=== PATIENT | female | born 1965 | race Caucasian/White ===

== ENCOUNTER 2016-08-03 18:50 | Emergency (ER) | payer BC, OTHER ==
[2016-08-03 18:55] VITALS: BP 129/90; RESP 16; TEMP 98.1
--- NOTE | 2016-08-03 19:50 | EDPHY ---
H & P Time Seen by Provider: 08/03/16 19:47 HPI/ROS: Chief complaint. Chronic pain HPI. 50-year-old female history of fibromyalgia presents with exacerbation of her fibromyalgia with neck and upper back pain for 1 week. No trauma. She has headache and nausea. No fever, cough. No abdominal pain. Also low energy. She has had similar symptoms previously. ROS Constitutional. no fever/chills, no weakness Eyes. no problems with vision ENT. no sore throat, no nasal drainage Cardiovascular. no chest pain Respiratory. no shortness of breath, no cough Abdominal. no abdominal pain, no nausea/vomiting, no diarrhea . no problems urinating MS. Upper back pain Skin. no rash Lymph. no swollen glands Neuro. no headache, no dizziness, no difficulty walking or with speech Past Medical/Surgical History: Past medical history significant for fibromyalgia, shoulder reconstruction, thyroidectomy, chronic migraines, cervical fusion Social History: , nonsmoker, no alcohol Smoking Status: Never smoked Physical Exam: General Appearance: Alert well-developed female mild distress vital signs are stable Eyes: Pupils equal and round no pallor or injection. ENT, Mouth: Mucous membranes are moist. Respiratory: There are no retractions, lungs are clear to auscultation. Cardiovascular: Regular rate and rhythm. Gastrointestinal: Abdomen is soft and nontender, no masses, bowel sounds normal. Neurological: Awake and alert, sensory and motor exams grossly normal. Skin: Warm and dry, no rashes. Musculoskeletal: Neck is supple and nontender however patient feels tightness in the paracervical and upper back muscles. Extremities symmetrical, full range of motion. Psychiatric: Patient is oriented X 3, there is no agitation. Constitutional: Initial Vital Signs Temperature (C) 36.7 C 08/03/16 18:52 Heart Rate 94 08/03/16 18:52 Respiratory Rate 16 08/03/16 18:52 Blood Pressure 129/90 H 08/03/16 18:52 O2 Sat (%) 96 08/03/16 18:52 O2 Delivery Mode Room Air Allergies/Adverse Reactions: morphine Allergy (Verified 12/18/15 18:31) Penicillins Allergy (Verified 12/18/15 18:31) Sulfa (Sulfonamide Antibiotics) Allergy (Verified 12/18/15 18:31) Home Medications: Medication Instructions Recorded DULoxetine [Cymbalta 60 MG (*)] 60 mg PO DAILY 07/23/15 Escitalopram Oxalate [Lexapro] 20 mg PO HS 07/23/15 HYDROmorphone HCL [Dilaudid 2 mg 2 mg PO TID PRN 07/23/15 (*)] Levothyroxine [Synthroid 50 mcg 50 mcg PO DAILY06 07/23/15 (*)] clonazePAM [klonoPIN (*)] 1 mg PO BID 07/23/15 Ferrous Sulfate [Slow Fe 140 MG 140 mg PO DAILY 12/18/15 (*)] Magnesium Oxide [Magnesium Oxide 250 - 500 mg PO DAILY 12/18/15 500 mg] Metaxalone 800 mg PO TID PRN 12/18/15 PROPRANOLOL HCL 60 mg PO HS 12/18/15 Ibuprofen [Motrin (*)] 400 mg PO Q4HRS PRN #0 tab 12/20/15 Medical Decision Making Procedures: IV normal saline. Versed IV. ED Course/Re-evaluation: Recheck at 8:50 p.m.. Patient is feeling somewhat better after the 2 mg of Versed. We will repeat 2 more mg of Versed Re-evaluation again at 9:20 p.m. patient, her , and I discussed laboratory evaluation. We discussed treatment plan importance of follow-up and further evaluation. She feels well enough now to be discharged. She has an appointment tomorrow morning for trigger point injections. She is encouraged to return at any point should she be worse. It sounds like she has quite a stressful week with the culmination of her stressful week on . Differential Diagnosis: Apparent fibromyalgia exacerbation. No evidence for infection or trauma or electrolyte abnormalities - Data Points Laboratory Results: Laboratory Results 08/03/16 20:38 08/03/16 20:38 08/03/16 08/03/16 20:38 20:38 WBC 4.50 10^3/uL 10^3/uL (3.80-9.50) RBC 4.44 10^6/uL 10^6/uL (4.18-5.33) Hgb 14.1 g/dL g/dL (12.6-16.3) Hct 41.6 % % (38.0-47.0) MCV 93.7 fL fL (81.5-99.8) MCH 31.8 pg pg (27.9-34.1) MCHC 33.9 g/dL g/dL (32.4-36.7) RDW 11.9 % % (11.5-15.2) Plt Count 290 10^3/uL 10^3/uL (150-400) MPV 8.8 fL fL (8.7-11.7) Neut % (Auto) 48.5 % % (39.3-74.2) Lymph % (Auto) 40.4 % % (15.0-45.0) [place] % (Auto) 8.7 % % (4.5-13.0) Eos % (Auto) 1.1 % % (0.6-7.6) Baso % (Auto) 1.1 % % (0.3-1.7) Nucleat RBC Rel Count 0.0 % % (0.0-0.2) Absolute Neuts (auto) 2.18 10^3/uL 10^3/uL (1.70-6.50) Absolute Lymphs (auto) 1.82 10^3/uL 10^3/uL (1.00-3.00) Absolute Monos (auto) 0.39 10^3/uL 10^3/uL (0.30-0.80) Absolute Eos (auto) 0.05 10^3/uL 10^3/uL (0.03-0.40) Absolute Basos (auto) 0.05 10^3/uL 10^3/uL (0.02-0.10) Absolute Nucleated RBC 0.00 10^3/uL 10^3/uL (0-0.01) Immature Gran % 0.2 % % (0.0-1.1) Immature Gran # 0.01 10^3/uL 10^3/uL (0.00-0.10) Sodium 139 mEq/L mEq/L (134-144) Potassium 3.9 mEq/L mEq/L (3.5-5.2) Chloride 104 mEq/L mEq/L (97-110) Carbon Dioxide 26 mEq/l mEq/l (22-31) Anion Gap 9 mEq/L mEq/L (8-16) BUN 14 mg/dL mg/dL (7-23) Creatinine 0.9 mg/dL mg/dL (0.6-1.0) Estimated GFR > 60 Glucose 83 mg/dL mg/dL (70-100) Calcium 9.3 mg/dL mg/dL (8.5-10.4) Medications Given: Discontinued Medications Sodium Chloride (Ns) 1,000 mls @ 0 mls/hr IV ONCE ONE PRN Reason: Wide Open Stop: 08/03/16 20:17 Last Admin: 08/03/16 20:42 Dose: 1,000 mls Midazolam HCl (Versed) 2 mg IVP EDNOW ONE Stop: 08/03/16 20:18 Last Admin: 08/03/16 20:42 Dose: 2 mg Midazolam HCl (Versed) 2 mg IVP ONCE ONE Stop: 08/03/16 20:57 Last Admin: 08/03/16 21:06 Dose: 2 mg Departure - Departure Disposition: Home, Routine, Self-Care Clinical Impression: Acute back pain Qualifiers: Back pain location: thoracic back pain Back pain laterality: bilateral Qualified Code(s): M54.6 - Pain in thoracic spine Condition: Good Instructions: Back Pain (ED) Additional Instructions: Continue regular medications. Return for worsening symptoms. Keep your appointment tomorrow morning for trigger point injections. Referrals: Ju Pena [Primary Care Provider] - As per Instructions
[2016-08-03] MEDS ORDERED: NS 1,000 ML IV ONE (20:16)
[2016-08-03] MEDS ORDERED: MIDAZOLAM 10 MG/2 ML VIAL IVP ONE (20:17)
[2016-08-03] MEDS ORDERED: MIDAZOLAM 2 MG/2 ML VIAL ONE (20:29)
[2016-08-03 20:46] LABS: % IMMATURE GRANULYOCYTES 0.2 % (0.0-1.1); ABSOLUTE IMMATURE GRANULOCYTES 0.01 10^3/uL (0.00-0.10); ADD DIFF? NO; ADD MORPH? NO; ADD SCAN? NO; ATYPICAL LYMPHOCYTE FLAG 0 (0-99); FRAGMENT RBC FLAG 0 (0-99); HEMATOCRIT 41.6 % (38.0-47.0); HEMOGLOBIN 14.1 g/dL (12.6-16.3); LEFT SHIFT FLG 0 (0-99); LIPEMIA HEMOLYSIS FLAG 90 (0-99); MEAN CELL HEMOGLOBIN 31.8 pg (27.9-34.1); MEAN CELL HEMOGLOBIN CONCENTR. 33.9 g/dL (32.4-36.7); MEAN CELL VOLUME 93.7 fL (81.5-99.8); MEAN PLATELET VOLUME 8.8 fL (8.7-11.7); PLATELET CLUMPS FLAG 0 (0-99); PLATELET COUNT 290 10^3/uL (150-400); RED BLOOD CELL COUNT 4.44 10^6/uL (4.18-5.33); RED CELL DISTRIBUTION WIDTH 11.9 % (11.5-15.2)
[2016-08-03] MEDS ORDERED: MIDAZOLAM 2 MG/2 ML VIAL IVP ONE (20:56)
[2016-08-03 21:00] LABS: ANION GAP 9 mEq/L (8-16); CALCIUM 9.3 mg/dL (8.5-10.4); CARBON DIOXIDE 26 mEq/l (22-31); CHLORIDE 104 mEq/L (97-110); CREATININE 0.9 mg/dL (0.6-1.0); GLOMERULAR FILTRATION RATE > 60; GLUCOSE 83 mg/dL (70-100); POTASSIUM 3.9 mEq/L (3.5-5.2); SODIUM 139 mEq/L (134-144)
[2016-08-03 21:36] VITALS: O2SAT 95
[2016-08-03 21:37] VITALS: PULSE 66
== END 2016-08-03 21:45 | disposition home or self-care (01) ==
DX: M54.6 Pain in thoracic spine (principal); G89.29 Other chronic pain
CPT/HCPCS: 96374; J2250

== ENCOUNTER 2016-08-14 12:24 | Observation (INO) | payer BC ==
--- NOTE | 2016-08-14 13:04 | CPEKG ---
Heart Rate: 67 RR Interval: 896 P-R Interval: 128 QRSD Interval: 78 QT Interval: 412 QTC Interval: 435 P [place]: -27 QRS [place]: 38 T Wave [place]: 49 EKG Severity - NORMAL ECG - EKG Impression: SINUS RHYTHM Electronically Signed By: Wang Girard 14-Aug-2016 15:14:51
[2016-08-14] MEDS ORDERED: NS 250 ML IV ONE (13:13)
[2016-08-14 13:22] LABS: % IMMATURE GRANULYOCYTES 0.2 % (0.0-1.1); ABSOLUTE IMMATURE GRANULOCYTES 0.01 10^3/uL (0.00-0.10); ADD DIFF? NO; ADD MORPH? NO; ADD SCAN? NO; ATYPICAL LYMPHOCYTE FLAG 10 (0-99); FRAGMENT RBC FLAG 0 (0-99); HEMATOCRIT 47.1 % (38.0-47.0); HEMOGLOBIN 16.2 g/dL (12.6-16.3); LEFT SHIFT FLG 0 (0-99); LIPEMIA HEMOLYSIS FLAG 90 (0-99); MEAN CELL HEMOGLOBIN 31.8 pg (27.9-34.1); MEAN CELL HEMOGLOBIN CONCENTR. 34.4 g/dL (32.4-36.7); MEAN CELL VOLUME 92.5 fL (81.5-99.8); MEAN PLATELET VOLUME 8.9 fL (8.7-11.7); PLATELET CLUMPS FLAG 0 (0-99); PLATELET COUNT 299 10^3/uL (150-400); RED BLOOD CELL COUNT 5.09 10^6/uL (4.18-5.33); RED CELL DISTRIBUTION WIDTH 11.6 % (11.5-15.2)
[2016-08-14 13:35] LABS: ANION GAP 13 mEq/L (8-16); CARBON DIOXIDE 23 mEq/l (22-31); CHLORIDE 102 mEq/L (97-110); GLOMERULAR FILTRATION RATE 59; GLUCOSE 91 mg/dL (70-100); POTASSIUM 4.2 mEq/L (3.5-5.2); SODIUM 138 mEq/L (134-144)
[2016-08-14] MEDS ORDERED: fentaNYL 100 MCG/2 ML INJ ONE (13:44)
[2016-08-14 13:45] LABS: TROPONIN I < 0.012 ng/mL (0-0.034)
[2016-08-14] MEDS ORDERED: fentaNYL 100 MCG/2 ML INJ IVP ONE (13:46)
[2016-08-14] MEDS ORDERED: ASPIRIN 81 MG CHEWABLE TAB PO ONE (14:11)
--- NOTE | 2016-08-14 14:13 | EDPHY ---
H & P Time Seen by Provider: 08/14/16 13:19 HPI/ROS: HPI Chest pain. 50-year-old female by private vehicle. She complains of chest pain, onset at 10 :00 a.m.. Reports pain is been constant. Describes pain as squeezing aching pressure sensation mid substernal area. No radiation. No diaphoresis. She reports she has had this type pain in the past. She was seen at a local emergency department several months ago for this condition. No provocative testing was done at this time. She has not had a cardiac catheterization. ROS: Constitutional: No fever, no chills. No weakness. Eyes: No discharge. No changes in vision. ENT: No sore throat. No nasal congestion or rhinorrhea. Respiratory: No cough. No shortness of breath. Cardiac: No chest pain, no palpitations. Gastrointestinal: No abdominal pain, no vomiting, no diarrhea. Genitourinary: No hematuria. No dysuria or increased frequency with urination. Musculoskeletal: No back pain. No neck pain. No myalgias or arthralgias. Skin: No rashes. Neurological: No headache. No focal weakness or altered sensation. Past medical history: Anxiety, fibromyalgia. Social history: Here by herself. Nonsmoker. Physical Exam: General Appearance: Alert, anxious. This patient is responding to questions appropriately and in full sentences. This patient appears well-hydrated and well-nourished. Eyes: Pupils equal and round no pallor or injection. No lid edema, erythema or injection. Respiratory: There are no retractions, lungs are clear to auscultation with good air movement bilaterally. Cardiovascular: Regular rate and rhythm. No murmur. Gastrointestinal: Abdomen is soft and nontender, no masses, bowel sounds normal. No focal tenderness at McBurney's point. No Mckeon sign. Neurological: Motor sensory function is grossly intact. Cranial nerves are normal. Gait is normal. Skin: Warm and dry, no rashes. Musculoskeletal: Neck is supple and nontender. Extremities are symmetrical. All joints range without pain or impingement. Psychiatric: No agitation. No depression. Database: EKG: EKG time 1:01 p.m.; EKG shows a narrow complex normal sinus rhythm with a ventricular rate of 67. The OK, QRS, QT intervals are within normal limits. There are no ST-T wave changes indicative of ischemic or injury pattern. No evidence of right heart strain. Interpreted by me. Imaging: Chest x-ray AP portable; the cardiac mediastinal silhouette is unremarkable. No evidence of infiltrate or pneumothorax. No acute cardiopulmonary disease process noted. Interpreted by me. Procedures: Emergency department course: IV placed. She was placed on a quality assurance monitor chassis. She was given 324 mg of chewed aspirin. She received 25 mcg of IV fentanyl. She had relief of her chest pain with this medication. EKG and chest x-ray obtained. 2:10 p.m., patient re-evaluated, resting comfortably at this time. Results of diagnostic workup discussed with her. Plan for telemetry observation admission discussed. All of her questions were answered. 2:15 p.m., discussed with on-call hospitalist. Patient accepted for admission to telemetry observation to the hospitalist service. Patient admitted in stable improved condition. Differential Diagnosis: The differential diagnosis on this patient includes but is not limited to anxiety reaction, acute coronary syndrome, esophageal spasm. This represents a partial list of diagnoses considered. These considerations are based on history , physical exam, past history, reassessment and diagnostic testing. Smoking Status: Never smoked Constitutional: Initial Vital Signs Temperature (C) 36.4 C 08/14/16 12:32 Heart Rate 77 08/14/16 12:32 Respiratory Rate 16 08/14/16 12:32 Blood Pressure 104/73 08/14/16 12:32 O2 Sat (%) 98 08/14/16 12:32 O2 Delivery Mode Room Air Allergies/Adverse Reactions: morphine Allergy (Verified 12/18/15 18:31) Penicillins Allergy (Verified 12/18/15 18:31) Sulfa (Sulfonamide Antibiotics) Allergy (Verified 12/18/15 18:31) Home Medications: Medication Instructions Recorded DULoxetine [Cymbalta 60 MG (*)] 60 mg PO DAILY 07/23/15 Escitalopram Oxalate [Lexapro] 20 mg PO HS 07/23/15 HYDROmorphone HCL [Dilaudid 2 mg 2 mg PO TID PRN 07/23/15 (*)] Levothyroxine [Synthroid 50 mcg 50 mcg PO DAILY06 07/23/15 (*)] clonazePAM [klonoPIN (*)] 1 mg PO BID 07/23/15 Ferrous Sulfate [Slow Fe 140 MG 140 mg PO DAILY 12/18/15 (*)] Magnesium Oxide [Magnesium Oxide 250 - 500 mg PO DAILY 12/18/15 500 mg] Metaxalone 800 mg PO TID PRN 12/18/15 PROPRANOLOL HCL 60 mg PO HS 12/18/15 Ibuprofen [Motrin (*)] 400 mg PO Q4HRS PRN #0 tab 12/20/15 Medical Decision Making - Diagnostics Imaging Results: Imaging Impressions Chest X-Ray 08/14/16 13:15 Impression: Normal chest x-ray. - Data Points Laboratory Results: Laboratory Results 08/14/16 13:06 08/14/16 13:06 08/14/16 08/14/16 08/14/16 13:06 13:06 13:06 WBC 4.44 10^3/uL 10^3/uL (3.80-9.50) RBC 5.09 10^6/uL 10^6/uL (4.18-5.33) Hgb 16.2 g/dL g/dL (12.6-16.3) Hct 47.1 % H % (38.0-47.0) MCV 92.5 fL fL (81.5-99.8) MCH 31.8 pg pg (27.9-34.1) MCHC 34.4 g/dL g/dL (32.4-36.7) RDW 11.6 % % (11.5-15.2) Plt Count 299 10^3/uL 10^3/uL (150-400) MPV 8.9 fL fL (8.7-11.7) Neut % (Auto) 59.7 % % (39.3-74.2) Lymph % (Auto) 30.2 % % (15.0-45.0) [place] % (Auto) 8.3 % % (4.5-13.0) Eos % (Auto) 0.5 % L % (0.6-7.6) Baso % (Auto) 1.1 % % (0.3-1.7) Nucleat RBC Rel Count 0.0 % % (0.0-0.2) Absolute Neuts (auto) 2.65 10^3/uL 10^3/uL (1.70-6.50) Absolute Lymphs (auto) 1.34 10^3/uL 10^3/uL (1.00-3.00) Absolute Monos (auto) 0.37 10^3/uL 10^3/uL (0.30-0.80) Absolute Eos (auto) 0.02 10^3/uL L 10^3/uL (0.03-0.40) Absolute Basos (auto) 0.05 10^3/uL 10^3/uL (0.02-0.10) Absolute Nucleated RBC 0.00 10^3/uL 10^3/uL (0-0.01) Immature Gran % 0.2 % % (0.0-1.1) Immature Gran # 0.01 10^3/uL 10^3/uL (0.00-0.10) PT Pending INR Pending APTT Pending Sodium 138 mEq/L mEq/L (134-144) Potassium 4.2 mEq/L mEq/L (3.5-5.2) Chloride 102 mEq/L mEq/L (97-110) Carbon Dioxide 23 mEq/l mEq/l (22-31) Anion Gap 13 mEq/L mEq/L (8-16) BUN 15 mg/dL mg/dL (7-23) Creatinine 1.0 mg/dL mg/dL (0.6-1.0) Estimated GFR 59 Glucose 91 mg/dL mg/dL (70-100) Calcium 9.0 mg/dL mg/dL (8.5-10.4) Creatine Kinase 69 IU/L IU/L (0-156) CK-MB (CK-2) Fraction 0.80 ng/mL ng/mL (0-3.19) Troponin I < 0.012 ng/mL ng/mL (0-0.034) Medications Given: Discontinued Medications Fentanyl (Sublimaze) 25 mcg IVP EDNOW ONE Stop: 08/14/16 13:47 Last Admin: 08/14/16 13:54 Dose: 25 mcg Sodium Chloride (Ns) 250 mls @ 0 mls/hr IV ONCE ONE PRN Reason: Wide Open Stop: 08/14/16 13:14 Last Admin: 08/14/16 13:21 Dose: 250 mls Departure - Departure Disposition: [facility] Inpatient Acute Clinical Impression: Chest pain Referrals: Ju Pena [Primary Care Provider] - As per Instructions
[2016-08-14 14:19] LABS: APTT 27.5 SEC (23.0-38.0)
[2016-08-14 14:20] LABS: PROTIME(PATIENT) 13.1 SEC (12.0-15.0)
[2016-08-14] MEDS ORDERED: ACETAMINOPHEN 325 MG TAB PO PRN (16:46)
[2016-08-14] MEDS ORDERED: ONDANSETRON DISINTEGRATING 4 MG TAB PO PRN (16:46)
[2016-08-14] MEDS ORDERED: ZOLPIDEM TARTRATE 6.25 MG PO PRN (16:51)
[2016-08-14] MEDS ORDERED: TAPENTADOL HCL 50 MG TAB PO PRN (16:51)
--- NOTE | 2016-08-14 17:01 | PDGENHP ---
History and Physical - Chief Complaint chest pain - History of Present Illness 50 yo female with hx of intermittent CP found to be non cardiac at [facility] several times per her report admitted from the E.D for chest pain r/o. She has a hx of Fibromyalgia and this has been thought to be contributing previously. She has also been previously treated for costochondritis with some improvement. She reports that she had CP this morning, left sided with palpitations at 10 a.m. She continues to have cp but this has now moved to the right side of her chest. It is worse with inspiration. It feels similar to previous chest pain. It is present at rest, not exertional. Not positional. Does not involve neck, jaw, arms. Trop negative. EKG is negative. CXR is negative. No SOB, no cough. Past medical history: Anxiety, fibromyalgia. Social history: Nonsmoker. No ETOH, no drug use. Lives alone FmHx: No hx of early cardiac disease Imaging: CXR: the cardiac mediastinal silhouette is unremarkable. No evidence of infiltrate or pneumothorax. No acute cardiopulmonary disease process noted. personally reviewed. EKG: no acute ischemic changed (personally reviewed) History Information - Allergies/Home Medication List Allergies/Adverse Reactions: morphine Allergy (Verified 12/18/15 18:31) Penicillins Allergy (Verified 12/18/15 18:31) Sulfa (Sulfonamide Antibiotics) Allergy (Verified 12/18/15 18:31) Home Medications: DULoxetine [Cymbalta 60 MG (*)] 60 mg PO DAILY 08/14/16 [Last Taken 08/14/16] Escitalopram Oxalate [Lexapro] 20 mg PO DAILY 08/14/16 [Last Taken 08/14/16] Ethinyl Estradiol/Drospirenone [Vestura 3 mg-0.02 mg Tablet] 1 each PO HS [Last Taken 08/13/16] Herbals/Supplements -Info Only 1 ea PO DAILY 08/14/16 [Last Taken Unknown] Levothyroxine [Synthroid 50 mcg (*)] 50 mcg PO DAILY 08/14/16 [Last Taken ] Tapentadol HCl [Nucynta 50 MG (*)] 50 mg PO Q6H PRN 08/14/16 [Last Taken Unknown ] Zolpidem Tartrate [Ambien Cr] 6.25 mg PO HS PRN 08/14/16 [Last Taken 08/13/16] buPROPion SR [Wellbutrin 100mg SR (*)] 100 - 200 mg PO DAILY 08/14/16 [Last Taken 08/14/16 1 tab] clonazePAM [klonoPIN (*)] 1 mg PO BID 08/14/16 [Last Taken 08/14/16 09:00 1 tab] I have personally reviewed and updated: family history, medical history, social history - Social History Smoking Status: Never smoked Review of Systems ROS: 10pt was reviewed & negative except for what was stated in HPI & below Physical Exam Temp Pulse Resp BP Pulse Ox 36.2 C 68 14 120/74 98 08/14/16 16:42 08/14/16 16:42 08/14/16 16:42 08/14/16 16:42 08/14/16 16:42 Constitutional: no apparent distress, appears nourished, not in pain Eyes: PERRL, anicteric sclera, EOMI Ears, Nose, Mouth, Throat: moist mucous membranes, hearing normal, ears appear normal Cardiovascular: regular rate and rhythym, no murmur, rub, or gallop, No systolic murmur, No JVD Respiratory: no respiratory distress, no rales or rhonchi, clear to auscultation Gastrointestinal: normoactive bowel sounds, soft, non-tender abdomen Skin: warm, normal color Neurologic: AAOx3 Psychiatric: interacting appropriately, anxious Lymph, Heme, Immunologic: no cervical LAD Lab Data & Imaging Review 08/14/16 13:06 08/14/16 13:06 WBC 4.44 10^3/uL (3.80-9.50) 08/14/16 13:06 RBC 5.09 10^6/uL (4.18-5.33) 08/14/16 13:06 Hgb 16.2 g/dL (12.6-16.3) 08/14/16 13:06 Hct 47.1 % (38.0-47.0) H 08/14/16 13:06 MCV 92.5 fL (81.5-99.8) 08/14/16 13:06 MCH 31.8 pg (27.9-34.1) 08/14/16 13:06 MCHC 34.4 g/dL (32.4-36.7) 08/14/16 13:06 RDW 11.6 % (11.5-15.2) 08/14/16 13:06 Plt Count 299 10^3/uL (150-400) 08/14/16 13:06 MPV 8.9 fL (8.7-11.7) 08/14/16 13:06 Neut % (Auto) 59.7 % (39.3-74.2) 08/14/16 13:06 Lymph % (Auto) 30.2 % (15.0-45.0) 08/14/16 13:06 [place] % (Auto) 8.3 % (4.5-13.0) 08/14/16 13:06 Eos % (Auto) 0.5 % (0.6-7.6) L 08/14/16 13:06 Baso % (Auto) 1.1 % (0.3-1.7) 08/14/16 13:06 Nucleat RBC Rel Count 0.0 % (0.0-0.2) 08/14/16 13:06 Absolute Neuts (auto) 2.65 10^3/uL (1.70-6.50) 08/14/16 13:06 Absolute Lymphs (auto) 1.34 10^3/uL (1.00-3.00) 08/14/16 13:06 Absolute Monos (auto) 0.37 10^3/uL (0.30-0.80) 08/14/16 13:06 Absolute Eos (auto) 0.02 10^3/uL (0.03-0.40) L 08/14/16 13:06 Absolute Basos (auto) 0.05 10^3/uL (0.02-0.10) 08/14/16 13:06 Absolute Nucleated RBC 0.00 10^3/uL (0-0.01) 08/14/16 13:06 Immature Gran % 0.2 % (0.0-1.1) 08/14/16 13:06 Immature Gran # 0.01 10^3/uL (0.00-0.10) 08/14/16 13:06 PT 13.1 SEC (12.0-15.0) 08/14/16 13:06 INR 1.00 (0.83-1.16) 08/14/16 13:06 APTT 27.5 SEC (23.0-38.0) 08/14/16 13:06 Sodium 138 mEq/L (134-144) 08/14/16 13:06 Potassium 4.2 mEq/L (3.5-5.2) 08/14/16 13:06 Chloride 102 mEq/L (97-110) 08/14/16 13:06 Carbon Dioxide 23 mEq/l (22-31) 08/14/16 13:06 Anion Gap 13 mEq/L (8-16) 08/14/16 13:06 BUN 15 mg/dL (7-23) 08/14/16 13:06 Creatinine 1.0 mg/dL (0.6-1.0) 08/14/16 13:06 Estimated GFR 59 08/14/16 13:06 Glucose 91 mg/dL (70-100) 08/14/16 13:06 Calcium 9.0 mg/dL (8.5-10.4) 08/14/16 13:06 Creatine Kinase 69 IU/L (0-156) 08/14/16 13:06 CK-MB (CK-2) Fraction 0.80 ng/mL (0-3.19) 08/14/16 13:06 Troponin I < 0.012 ng/mL (0-0.034) 08/14/16 13:06 Assessment & Plan Assessment: #Chest pain (Acute), likely atypical. Her story seem more appropriate for costochondritis or other etiology. I will start her on NSAIDS and determine clinical response. Aspirin was given earlier. Serial Trops EKG with CP Telemetry #Fibromyalgia #Anxiety Plan: Per above restart home meds will hold off on stress test in a.m. for now
[2016-08-14] MEDS ORDERED: ZOLPIDEM TARTRATE 5 MG TAB PO PRN (17:02)
[2016-08-14] MEDS: NS W/ 20 KCl/L 1,000 ML IV SCH ×2 (18:10→21:12)
[2016-08-14] MEDS ORDERED: DROSPIRENONE PO SCH (21:00)
[2016-08-14] MEDS ORDERED: ETHINYL ESTRADIOL PO SCH (21:00)
[2016-08-14] MEDS: clonazePAM 1 MG TAB PO SCH (21:10)
[2016-08-14] MEDS: IBUPROFEN 800 MG TAB PO SCH (21:10)
[2016-08-14] MEDS ORDERED: ESCITALOPRAM OXALATE 10 MG TAB PO SCH (22:45)
[2016-08-15 05:36] LABS: % IMMATURE GRANULYOCYTES 0.2 % (0.0-1.1); ABSOLUTE IMMATURE GRANULOCYTES 0.01 10^3/uL (0.00-0.10); ADD DIFF? NO; ADD MORPH? NO; ADD SCAN? NO; ATYPICAL LYMPHOCYTE FLAG 0 (0-99); FRAGMENT RBC FLAG 0 (0-99); HEMATOCRIT 39.7 % (38.0-47.0); HEMOGLOBIN 13.4 g/dL (12.6-16.3); LEFT SHIFT FLG 0 (0-99); LIPEMIA HEMOLYSIS FLAG 90 (0-99); MEAN CELL HEMOGLOBIN 31.9 pg (27.9-34.1); MEAN CELL HEMOGLOBIN CONCENTR. 33.8 g/dL (32.4-36.7); MEAN CELL VOLUME 94.5 fL (81.5-99.8); MEAN PLATELET VOLUME 9.1 fL (8.7-11.7); PLATELET CLUMPS FLAG 0 (0-99); PLATELET COUNT 248 10^3/uL (150-400); RED CELL DISTRIBUTION WIDTH 11.9 % (11.5-15.2)
[2016-08-15 05:45] LABS: ANION GAP 6 mEq/L (8-16); CARBON DIOXIDE 24 mEq/l (22-31); CHLORIDE 107 mEq/L (97-110); CREATININE 0.9 mg/dL (0.6-1.0); GLOMERULAR FILTRATION RATE > 60; GLUCOSE 76 mg/dL (70-100); POTASSIUM 4.6 mEq/L (3.5-5.2); SODIUM 137 mEq/L (134-144)
[2016-08-15 05:56] LABS: TROPONIN I < 0.012 ng/mL (0-0.034)
[2016-08-15] MEDS: IBUPROFEN 800 MG TAB PO SCH (06:21)
[2016-08-15] MEDS ORDERED: buPROPion SR 100 MG TAB PO SCH (09:00)
[2016-08-15] MEDS ORDERED: LEVOTHYROXINE 50 MCG TAB PO SCH (09:00)
[2016-08-15] MEDS ORDERED: DULoxetine 60 MG CAP PO SCH (09:00)
[2016-08-15] MEDS ORDERED: NON-FORMULARY NEW DRUG (Escitalopram Oxalate [Lexapro] 20 MG) PO SCH (09:00)
--- NOTE | 2016-08-15 09:57 | CPEKG ---
Heart Rate: 69 RR Interval: 870 P-R Interval: 136 QRSD Interval: 82 QT Interval: 428 QTC Interval: 459 P [place]: 65 QRS [place]: 60 T Wave [place]: 59 EKG Severity - NORMAL ECG - EKG Impression: SINUS RHYTHM Electronically Signed By: Liliana Christianson 15-Aug-2016 13:50:20
[2016-08-15 11:36] VITALS: BP 107/66; PULSE 75; RESP 25; TEMP 98.1; O2SAT 98
--- NOTE | 2016-08-15 12:21 | ECHO ---
[id number] + + [id number] : : [place] [address] : : [phone] + + Adult Echocardiographic Report + ---------+ :Name: NHOEMI JOHNSON MStudy Date: 08/15/2016 10:46 AM BP: 103/62 m mHg : : Hospital Admission Number: [id number] Meghana osorio: 143: :: 1965 Gender: Female Height: 64 i n : :Age: 50 yrs Race: WH Weight: 115 lb : :Reason For Study: chest pain : : BSA: 1.5 met ers2 : :History: chest pain : + ---------+ MMode/2D Measurements \T\ Calculations IVSd: 0.82 cm RVDd: 1.9 cm FS: 29.1 % Ao root diam: LVPWd: 0.81 cm LVIDd: 3.7 cm EDV(Teich): 2.8 cm LVIDs: 2.7 cm 59.6 ml ESV(Teich): 25.8 ml EF(Teich): 56.7 % LVLd ap4: 6.8 cm SV(MOD-sp4): EDV(MOD-sp4): 42.0 ml 69.0 ml LVLs ap4: 5.7 cm ESV(MOD-sp4): 27.0 ml EF(MOD-sp4): 60.9 % Normal Measurement Values: + + :LVIDd (3.5-5.7cm) IVSd (0.6-1.1cm) LVPWd (0.6-1.1cm) Aortic Root (2.0-3.7cm)Left Atrium (1.5-4.0cm): :LV Vol(d) (76-115ml) LV Vol(s) (29-48ml) Ejec Fraction (50-65%)PV Valdemar (0.6- 1.2m/s) TV Valdemar (0.4-1.0m/s) : :MV E Valdemar (0.8-1.0m/s)MV A Valdemar (0.3-1.0m/s)LVOT Valdeamr (0.7-1.2m/s) Asc Ao Valdemar ( 0.9-1.8m/s) : + + Doppler Measurements \T\ Calculations MV E max valdemar: Ao V2 max: LV V1 max: PA V2 max: 77.5 cm/sec 108.0 cm/sec 94.8 cm/sec 103.0 cm/sec MV A max valdemar: Ao max PG: LV V1 max PG: PA max P.2 cm/sec 4.7 mmHg 3.6 mmHg 4.2 mmHg MV E/A: 1.2 MV dec time: 0.20 sec TR max valdemar: 215.0 cm/sec TR max P.5 mmHg Left Ventricle The left ventricle is normal in size and function. There is normal left ventricular wall thickness. Ejection Fraction = 60%. No regional wall motion abnormalities noted. Right Ventricle The right ventricle is normal in size and function. Atria The left atrial size is normal. Right atrial size is normal. Mitral Valve The mitral valve is normal in structure and function. There is no mitral valve stenosis. There is trace to mild mitral regurgitation. Tricuspid Valve The tricuspid valve is normal in structure and function. There is no tricuspid stenosis. There is trace to mild tricuspid regurgitation. Right ventricular systolic pressure is 23mmHg. Aortic Valve The aortic valve is trileaflet. There is no aortic stenosis. There is no aortic insufficiency. Pulmonic Valve The pulmonic valve is not well visualized. Great Vessels The aortic root is normal size. Pericardium/Pleural trivial pericardial effusion. Conclusion A two-dimensional transthoracic echocardiogram with M-mode and Doppler was performed. The left ventricle is normal in size and function. Ejection Fraction = 60%. Normal wall motion. Normal appearing valves. There is trace to mild mitral regurgitation. There is trace to mild tricuspid regurgitation. Right ventricular systolic pressure is 23mmHg. Trivial pericardial effusion. Final Reading Physician: Sierra Harris signed on 08/15/2016 12:20 PM Ordering Physician: Samir Restrepo Performed By: Denise Andrade
[2016-08-15] MEDS: clonazePAM 1 MG TAB PO SCH (13:39)
[2016-08-15] MEDS ORDERED: ESCITALOPRAM OXALATE 10 MG TAB PO SCH (21:00)
--- NOTE | 2016-08-16 06:02 | GDS ---
[f rep st] DISCHARGE SUMMARY DISCHARGE DIAGNOSES: 1. Atypical chest pain, likely musculoskeletal in nature. 2. Fibromyalgia. 3. Anxiety. IMAGING STUDIES/PROCEDURES: Echocardiogram August 15, 2016 shows normal left ventricular size and func tion with an EF of 60%. Normal wall motion and normal valves with trivial pericardial effusion. HISTORY: For details please see the history and physical dated August 14, 2016, by Dr. Samir Restrepo. In brief, the patient is a 50-year-old female with history of fibromyalgia and anxiety who presente d to the emergency department chest pain. She had recently been evaluated for chest pain at [facility] several times prior to arrival here. She has previously been ruled out for cardiac source. She is admitted to the hospital for further evaluation. HOSPITAL COURSE: The patient is in the observation unit. She had a nonischemic EKG. Negative trop onins x3. Negative D-dimer. No abnormal events on telemetry. She does have reproducible chest marty n on palpation of her chest wall and I agree with the previous evaluation that this is likely muscul oskeletal in nature. This is consistent with costochondritis. DISPOSITION: Patient is discharged home in stable condition. DISCHARGE MEDICATIONS: Please see [facility] for complete updated outpatient medication list. There are no new medications on discharge. We will continue her ibuprofen for costochondritis pain. FOLLOWUP: She is to follow up with her primary care physician Ju Pena for ongoing manageme nt of her fibromyalgia and chest wall pain. /[id number]/MODL
== END 2016-08-15 14:30 | disposition home or self-care (01) ==
LOC: F1N 16:28
PROVIDERS: ADMIT Family Medicine; ATTEND Hospitalist
DX: R07.89 Other chest pain (principal); M79.7 Fibromyalgia; F41.9 Anxiety disorder, unspecified
CPT/HCPCS: 71010; 93005; 93306; 96374; 99285; G0378; J3010

== ENCOUNTER 2016-10-30 18:34 | Emergency (ER) | payer BC ==
[2016-10-30 18:42] VITALS: RESP 16
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
[2016-10-30] MEDS ORDERED: LIDOCAINE 5% 1 EA PATCH TD ONE (20:43)
[2016-10-30] MEDS ORDERED: PATCH REMOVAL 1 EA PATCH TD SCH (21:00)
[2016-10-30 21:24] VITALS: BP 115/76; PULSE 74; TEMP 97.9; O2SAT 94
== END 2016-10-30 21:24 | disposition home or self-care (01) ==
DX: M54.9 Dorsalgia, unspecified (principal); M79.7 Fibromyalgia; G89.29 Other chronic pain

== ENCOUNTER 2016-11-04 18:20 | Emergency (ER) | payer BC ==
[2016-11-04 18:28] VITALS: TEMP 97.3
[2016-11-04] MEDS: LIDOCAINE 5% 1 EA PATCH TD SCH ×3 (19:20→19:48)
[2016-11-04] MEDS ORDERED: KETOROLAC 30 MG/1 ML SDV IVP ONE (19:23)
[2016-11-04] MEDS ORDERED: methylPREDNISolone SOD SUCC 125 MG/2 ML VIAL IVP ONE (19:23)
[2016-11-04] MEDS ORDERED: LIDOCAINE 5% 1 EA PATCH TD ONE (19:38)
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
[2016-11-04] MEDS ORDERED: PATCH REMOVAL 1 EA PATCH TD SCH (21:00)
[2016-11-04] MEDS ORDERED: MIDAZOLAM 2 MG/2 ML VIAL IVP ONE (21:14)
[2016-11-04 21:34] VITALS: RESP 16
[2016-11-04 22:01] VITALS: BP 115/72; PULSE 74; O2SAT 95
== END 2016-11-04 21:59 | disposition home or self-care (01) ==
DX: M54.9 Dorsalgia, unspecified (principal); G89.29 Other chronic pain; M79.7 Fibromyalgia
CPT/HCPCS: 96374; J1885; J2250